=== PATIENT | female | born 1930 | race Two or more races ===

== ENCOUNTER 2018-12-28 18:50 | Emergency (ER) | payer OTHER ==
[~2018-12-28] VITALS: Ht 160 cm; Wt 99.8 kg
[~2018-12-28 18:50] MED LIST: ALPR0.5T PO; BIMA0.01 EACHEYE; CEPH-37 PO; CHOL1CAP15 PO; CLON0.2T PO; DOC100C PO; DORZ1SOL2 EACHEYE; FLUR15CA PO; FURO40TA4 PO; GABA300C10 PO; LISI40TA PO; NAS17NSL INH; NIFE30TA77 PO; NOR10T PO; OME20GT; ROPI0.25 PO; SIMV10TA84 PO
[2018-12-28] MEDS ORDERED: HYDROcodone-ACET 10/325MG TAB PO ONE (23:30)
[2018-12-28] MEDS ORDERED: ONDANSETRON ODT 4 MG TAB PO ONE (23:30)
[2018-12-29 00:43] LABS: Basophils # (auto) 0 uL; Basophils % (auto) 0.7 % (0.0-2.0); Eosinophils # (auto) 0.1 uL; Eosinophils % (auto) 2.3 % (0.0-7.0); Hematocrit 36.2 % (36.0-46.0); Hemoglobin 11.6 g/dL (12.2-16.2); Lymphocytes # (auto) 1.6 uL; Mean Corpuscular Volume 87.6 fL (80.0-100.0); Monocytes # (auto) 0.6 uL; Monocytes % (auto) 12.2 % (0.0-12.0); Neutrophils # (auto) 2.5 uL; Neutrophils % (auto) 50.8 % (37.0-80.0); Nucleated Red Blood Cells % 0.1 %; Platelet Count (auto) 174 10^3/uL (140-450); Red Blood Cells 4.13 10^6/uL (4.0-5.20); Red Cell Distribution Width 15.1 % (11.8-14.3); White Blood Cell 4.8 10^3/uL (4.4-10.8)
[2018-12-29 00:58] LABS: Albumin 2.9 g/dL (3.4-5.0); Calcium 7.7 mg/dL (8.5-10.1); Potassium 4.1 mmol/L (3.5-5.1)
[2018-12-29 01:01] LABS: Bilirubin, Total 0.2 mg/dL (0.2-1.0); Total Protein 6.2 g/dL (6.4-8.2); Uric Acid 2.8 mg/dL (2.6-6.0)
[2018-12-29 04:00] VITALS: BP 143/69
== END 2018-12-29 04:35 | disposition home or self-care (01) ==
LOC: EDBD 18:50 → EDSEX 18:50 → ER 18:55
DX: M17.12 Unilateral primary osteoarthritis, left knee (principal); L29.9 Pruritus, unspecified; M54.2 Cervicalgia; M19.90 Unspecified osteoarthritis, unspecified site; K21.9 Gastro-esophageal reflux disease without esophagitis; E78.5 Hyperlipidemia, unspecified; I10 Essential (primary) hypertension; Z88.5 Allergy status to narcotic agent; Z88.8 Allergy status to other drugs, medicaments and biological substances
CPT/HCPCS: 36415; 80053; 83605; 84550; 85025; 93005; 99284; Q0162; 73700